=== PATIENT | female | born 1970 | race Caucasian/White ===

== ENCOUNTER 2019-01-11 21:51 | Emergency (ER) | payer MEDICAID ==
[~2019-01-11] VITALS: Ht 162.6 cm; Wt 75.0 kg
--- NOTE | 2019-01-11 22:15 | NUR ---
PT HERE FOR ETOH ABUSE AND GLF. PT DENIES LOC AND HAS NO OBVIOUS INJURIES. PT AAOX4 WITH SOME PRODING. VSS. PT PLACED ON 2 L O2 DUE TO DESAT WHILE SLEEPING. CALL LIGHT IN REACH
--- NOTE | 2019-01-11 22:52 | NUR ---
PT SLEEPING. VSS. PT IN NAD. CALL LIGHT IN REACH
--- NOTE | 2019-01-12 01:15 | NUR ---
PT ASLEEP. PT AROUSES TO VOICE AND GOES BACK TO SLEEP. CALL LIGHT IN REACH
--- NOTE | 2019-01-12 02:00 | NUR ---
PT SLEEPING. VSS. PT IN NAD. CALL LIGHT IN REACH
[2019-01-12 02:35] VITALS: BP 112/75
--- NOTE | 2019-01-12 03:22 | NUR ---
Patient given discharge instructions and they have confirmed that they understand the instructions. Patient ambulatory with steady gait.
== END 2019-01-12 03:24 | disposition home or self-care (01) ==
LOC: ED 01-12 03:15
DX: F10.120 Alcohol abuse with intoxication, uncomplicated (principal)
CPT/HCPCS: 99283